=== PATIENT | male | born 1995 | race American Indian/Alaskan Native ===

== ENCOUNTER 2017-01-09 08:42 | Outpatient (CLI) | payer OTHER ==
[2017-01-09 09:26] LABS: Basophils % (Auto) 0.7 % (0.0-1.8); Eosinophils % (Auto) 1.5 % (0.0-4.3); Hematocrit 34.7 % (35.5-45.6); Hemoglobin 11.5 gm/dl (11.8-15.2); Mean Corpuscular HGB Conc 33 % (32-34); Mean Corpuscular Hemoglobin 27 pg (28-32); Mean Corpuscular Volume 83 fl (84-94); Platelet Count 325 K/mm3 (140-440); White Blood Count 8.1 K/mm3 (4.5-11.0)
[2017-01-09 12:41] LABS: Alanine Aminotransferase 11 units/L (7-56); Albumin 4.2 g/dL (3.9-5); Albumin/Globulin Ratio 0.9 %; Alkaline Phosphatase 65 units/L (35-129); Anion Gap 15 mmol/L; BUN/Creatinine Ratio 9.28; Blood Urea Nitrogen 13 mg/dL (9-20); Calcium 9.8 mg/dL (8.4-10.2); Carbon Dioxide 28 mmol/L (22-30); Chloride 96.9 mmol/L (98-107); Glucose 94 mg/dL (75-100); Potassium 4.1 mmol/L (3.6-5.0); Sodium 136 mmol/L (137-145); Total Protein 8.9 g/dL (6.3-8.2)
== END 2017-01-09 08:43 | disposition home or self-care (01) ==
LOC: LABHHL 08:42
PROVIDERS: ATTEND Student in an Organized Health Care Education/Training Program
DX: K62.5 Hemorrhage of anus and rectum (principal)
CPT/HCPCS: 36415; 80053; 85025

== ENCOUNTER 2017-03-04 16:34 | Emergency (ER) | payer SELFPAY | END 2017-03-04 16:40 | disposition left against medical advice (07) | LOC: ED 16:34 | DX: Z53.21 Procedure and treatment not carried out due to patient leaving prior to being seen by health care provider (principal) ==